=== PATIENT | female | born 1985 | race Caucasian/White ===

== ENCOUNTER 2018-10-30 11:05 | Inpatient (IN) | payer OTHER ==
[~2018-10-30] VITALS: Ht 160 cm; Wt 72.6 kg
[~2018-10-30 11:05] MED LIST: ZYRTEC10 MG PO
--- NOTE | 2018-10-30 11:39 | NUR ---
PTE REFIERE VOMITOS Y DOLOR ABDOMINAL FUE EVELYNE DE KATINA EL ADRIANA DE MICHELE REFIERE SE FERMIN S/V Y SE UBICA EN AREA DE OBSERVACION
--- NOTE | 2018-10-30 14:15 | NUR ---
SE RECIBE PTE FEMENINA DE 33 YRS ALERTAS CONCIENTE Y TRANQUILA EN CAMA CON BARANDAS ELEVADA. PTE ES EVALUADA POR EL TAMMI MARTINEZ QUIEN ORDENA TRATAMIENTO LA CUAL SE EJECUTA. SE OBSERVAC PTE CON CON DISTENCION ABDOMINAL . SE FERMIN ORDEN MEDICA DEL QUIEN QUE SE EJECURTA. SE INSERTA TUBO NASOGASTRICO #18 EN FOSA NASAL DERECHO LACUAL SE OBSERVA SECRECIONES DE COLOR COFFE BROWN . SE NOTICA LA CUAL REFIERE CONSULTARLA CON MEDICINA INTERNA.
--- NOTE | 2018-10-30 16:00 | NUR ---
SE RECIBE PTE EL LA CUAL SE ENCUENTRA EN CAMA ACOMPANADA DE FAMILIARES, LA MISMA SE ENCUENTRA CON NGT EN FOSA NASAL DERECHA TO LIST SE OBSERVAN SECRECIONES EN EL MISMO, PTE PRESENTA AREA DE VENOPUNCION MICHAEL DE EDEMA Y ENROJECIMIENTO CON IV FLUID PATENTE. SE MANTIENE PTE BAJO OSBERVACION EN ESPERA DE CONSULTA CON DR. BRUNER.
== END 2018-11-05 11:10 | disposition home or self-care (01) | DRG 389 ==
LOC: ER 11:05 → SEC-K 20:13 → SURH 20:13
PROVIDERS: ADMIT Internal Medicine
PROC: BW21ZZZ Computerized Tomography (CT Scan) of Abdomen and Pelvis (ICD-10-PCS; principal; 2018-10-30)
PROC: 30233N1 Transfusion of Nonautologous Red Blood Cells into Peripheral Vein, Percutaneous Approach (ICD-10-PCS; 2018-11-01)
DX: K91.30 Postprocedural intestinal obstruction, unspecified as to partial versus complete (principal); D62 Acute posthemorrhagic anemia